=== PATIENT | male | born 1960 | race Caucasian/White ===

== ENCOUNTER 2017-10-25 02:55 | Observation (INO) | payer OTHER ==
[2017-10-25 03:09] VITALS: TEMP 98.4; BMI 25.0
--- NOTE | 2017-10-25 04:09 | PDOC ---
History of Present Illness - History of Present Illness Initial Comments: 10/25/17 05:40 Param 57 YOM with h/o alcohol dependence, depression presenting with abnormal EKG sent in from [facility] for detox. Patient reports that he is currently asymptomatic. Patient is bradycardic here in the ER and states he has never been told this before but has noticed for a couple months now that his heart rate is slower at times and has occasional pauses. Patient also endorses occasional shortness of breath but denies any syncopal episodes. Patient also have a positive family history for cardiac illnesses but cannot recall family members ages at the time of onset. Patient denies any recent illnesses. The patient denies chest pain, shortness of breath, headache, and dizziness. Denies fever, chills, nausea, vomit, diarrhea, and constipation. Denies dysuria, frequency, urgency, and hematuria. Allergies: NKA Past surgical history: None reported. Social history: Occasonal marijuana use. Current smoker. Alcohol use. <Melly Louis - Last Filed: 10/25/17 05:40> - General History Source: Patient Exam Limitations: No Limitations <Maribel Kelly - Last Filed: 10/25/17 06:13> - General Chief Complaint: Revisit, Lab Variance Stated Complaint: ABNORMAL EKG Time Seen by Provider: 10/25/17 03:26 Past History <Melly Louis - Last Filed: 10/25/17 05:40> - Past Medical History COPD: No Other medical history: Pt denies - Suicide/Smoking/Psychosocial Hx Smoking History: Current every day smoker Have you smoked in the past 12 months: Yes Number of Cigarettes Smoked Daily: 20 Information on smoking cessation initiated: No Hx Alcohol Use: Yes (Beer & liquor) Drug/Substance Use Hx: Yes (Marijuana) Substance Use Type: Alcohol, Marijuana <Maribel Kelly - Last Filed: 10/25/17 06:13> - Past Medical History Allergies/Adverse Reactions: Allergies Allergy/AdvReac Type Severity Reaction Status Date / Time No Known Allergies Allergy Verified 10/25/17 03:03 Review of Systems - Review of Systems Able to Perform ROS?: Yes Comments:: 10/25/17 05:40 ROS General Medical GENERAL/CONSTITUTIONAL: No fever or chills. No weakness. no sweats. HEAD, EYES, EARS, NOSE AND THROAT: No change in vision or hearing. No ear pain or discharge. No sore throat or mouth pain. No difficulty swallowing.. No congestion. CARDIOVASCULAR: No chest pain or palpitations, syncope or edema. RESPIRATORY: No SOB, cough, wheezing, or hemoptysis. GASTROINTESTINAL No nausea/vomiting. No diarrhea or constipation. No bloody stools. GENITOURINARY: No hematuria, dysuria, frequency, urgency or other changes. MUSCULOSKELETAL: No joint or muscle swelling or pain. No neck or back pain. SKIN: No rash or changes in skin color or lesions. NEUROLOGIC: No headache, vertigo, loss of consciousness, or change in strength/ sensation. No gait instability. HEMATOLOGIC/LYMPHATIC: No anemia, easy bruising/bleeding, or history of blood clots. ALLERGIC/IMMUNOLOGIC: No allergies All other systems reviewed and negative, or as documented in HPI. <Melly Louis - Last Filed: 10/25/17 05:40> *Physical Exam - Vital Signs Last Vital Signs Temp Pulse Resp BP Pulse Ox 98.4 F 49 L 18 130/73 96 10/25/17 03:06 10/25/17 03:06 10/25/17 03:06 10/25/17 03:06 10/25/17 03:06 - Physical Exam Comments: 10/25/17 05:40 Physical exam (general medical): for attending only patients. General: Well appearing, awake and alert, NAD. HEENT: NCAT, PERRL, EOMI, clear conjunctiva, anicteric, moist mucus membranes, clear oropharynx, no oral lesions.. Neck: neck supple, FROM Resp: CTAB, normal and even respirations, no respiratory distress CVS: RRR, no murmurs, 2+ peripheral pulses throughout, no peripheral edema Abdomen: soft, NTND, no peritoneal signs. Back: nontender, normal inspection and ROM MSK: no edema, CANCHOLA x4, ROM intact. No clubbing or cyanosis. normal bulk and tone. Neuro: alert, oriented appropriately; no focal neurologic deficits. Skin: warm and well perfused, cap refill <2 sec, normal color <Melly Louis - Last Filed: 10/25/17 05:40> - Vital Signs Last Vital Signs Temp Pulse Resp BP Pulse Ox 98.4 F 49 L 18 130/73 96 10/25/17 03:06 10/25/17 03:06 10/25/17 03:06 10/25/17 03:06 10/25/17 03:06 <Maribel Kelly - Last Filed: 10/25/17 06:13> Heart Score/ECG Review - ECG Impressions Comment:: 10/25/17 04:09 EKG with TWI in inferior and precordial leads, normal intervals no ST segment derangements, sinus bradycardia. <Maribel Kelly - Last Filed: 10/25/17 06:13> ED Treatment Course - LABORATORY CBC & Chemistry Diagram: 10/25/17 04:50 10/25/17 04:50 - ADDITIONAL ORDERS Additional order review: Laboratory Results 10/25/17 10/25/17 04:50 04:50 PT with INR 11.40 INR 1.01 Sodium 144 Potassium 3.8 Chloride 109 H Carbon Dioxide 29 Anion Gap 6 L BUN 12 Creatinine 0.9 Creat Clearance w eGFR > 60 Random Glucose 98 Calcium 8.7 Magnesium 1.9 Total Bilirubin 0.4 AST 22 ALT 29 Alkaline Phosphatase 73 Troponin I < 0.02 Total Protein 6.6 Albumin 3.6 10/25/17 04:50 RBC 4.42 MCV 94.6 MCHC 34.0 RDW 13.6 MPV 10.7 Neutrophils % 40.1 L Lymphocytes % 46.9 H Monocytes % 8.5 Eosinophils % 3.3 Basophils % 1.2 <Melly Louis - Last Filed: 10/25/17 05:40> - LABORATORY CBC & Chemistry Diagram: 10/25/17 04:50 10/25/17 04:50 - RADIOLOGY Radiology Studies Ordered: Category Date Time Status CHEST PA & LAT [RAD] Stat Radiology 10/25/17 03:26 Taken <Maribel Kelly - Last Filed: 10/25/17 06:13> Medical Decision Making - Medical Decision Making 10/25/17 04:08 A portion of this note was documented by scribe services under my direction. I have reviewed the details of the note, within reason, and agree with the documentation with the following case summary and management plan written by me. Shane Virgen 57 YOM with h/o alcohol dependence, depression presenting with abnormal EKG sent in from [facility] where he was initially getting eval for detox. Denies symptoms currently. However has episodes of left sided CP and sob occasionally, with other episodes of sinus pauses. no syncope. +fam history of CAD/unclear history and ages and specifics. Vital signs with sinus bradycardia. EKG with TWI in inferior and precordial leads, normal intervals no ST segment derangements, sinus bradycardia. no prior EKGs. basic labs and lytes wnl, coags normal, trop negative, reassuring. CXR clear, no effusion or mass or pulm edema. no tele events here, remains asymptomatic, but concerning prior history of cp/ sob and sinus pauses/symptomatic bradycardia cards cs, tele monitoring and admit for abnormal EKG and intermittent episodes of sinus pauses, bradycardia and CP/sob. admit for medical management, tele, lisa/abnormal EKG/ischemia workup, cards cs. consultation placed with relationship specialist doctor Dr. Stark 10/25/17 06:12 10/25/17 06:13 <Maribel Kelly - Last Filed: 10/25/17 06:13> *DC/Admit/Observation/Transfer - Attestations Scribe Attestion: 10/25/17 05:41 Documentation prepared by Melly Louis, acting as medical research scientist for Maribel Kelly MD. <Melly Louis - Last Filed: 10/25/17 05:40> - Discharge Dispostion Decision to Admit order: Yes <Maribel Kelly - Last Filed: 10/25/17 06:13> Diagnosis at time of Disposition: Abnormal EKG, Bradycardia - Discharge Dispostion Condition at time of disposition: Stable
[2017-10-25 05:06] LABS: BASO % 1.2 % (0-2.0); EOS % 3.3 % (0-4.5); HEMATOCRIT 41.9 % (35.4-49); HEMOGLOBIN 14.2 GM/dL (11.7-16.9); LYMPH % 46.9 % (8-40); MCH 32.2 pg (25.7-33.7); MEAN CELL VOLUME 94.6 fl (80-96); MEAN PLT VOLUME 10.7 fl (7.5-11.1); MONO % 8.5 % (3.8-10.2); NEUT % 40.1 % (42.8-82.8); PLATELET COUNT 168 K/MM3 (134-434); RBC 4.42 M/mm3 (4.00-5.60); RDW 13.6 % (11.9-15.9)
[2017-10-25 05:23] LABS: INR 1.01 (0.83-1.09); PROTHROMBIN TIME (PATIENT) 11.4 SEC (9.7-13.0)
[2017-10-25 05:34] LABS: ALBUMIN 3.6 g/dl (3.4-5.0); ANION GAP 6 MMOL/L (8-16); BILIRUBIN,TOTAL 0.4 mg/dL (0.2-1.0); BLOOD UREA NITROGEN 12 mg/dL (7-18); CALCIUM 8.7 mg/dL (8.5-10.1); CHLORIDE 109 mmol/L (98-107); CO2 29 mmol/L (21-32); CREATININE 0.9 mg/dL (0.7-1.3); GLUCOSE,RANDOM 98 mg/dL (74-106); MAGNESIUM 1.9 mg/dL (1.8-2.4); POTASSIUM 3.8 mmol/L (3.5-5.1); SGOT/AST 22 U/L (15-37); SGPT/ALT 29 U/L (12-78); SODIUM 144 mmol/L (136-145); TOT PROT 6.6 g/dl (6.4-8.2)
[2017-10-25 05:36] LABS: ALK PHOS 73 U/L (45-117)
--- NOTE | 2017-10-25 06:09 | PN ---
Teaching Attending Note Name of Resident: Demetra Yanez ATTENDING PHYSICIAN STATEMENT I saw and evaluated the patient. Chart, data, imaging reviewed. I reviewed the resident's note and discussed the case with the resident. I agree with the resident's findings and plan as documented. SUBJECTIVE: 57 YOM with h/o alcohol dependence, depression sent from [facility] for evaluation of abnormal EKG. EKG showed sinus bradycardia. Pt is asymptomatic. No chest pain or shortness of breath. His last drink of EtoH was monday. OBJECTIVE: Last Vital Signs Temp Pulse Resp BP Pulse Ox 98.4 F 52 L 18 132/75 96 10/25/17 03:30 10/25/17 03:30 10/25/17 03:30 10/25/17 03:30 10/25/17 03:30 general- nad cv - s1+s2 + bradycardia chest - clear abdomen - soft, nt ext- no pedal edema Abnormal Lab Results 10/25/17 10/25/17 04:50 04:50 Neutrophils % 40.1 L Lymphocytes % 46.9 H Chloride 109 H Anion Gap 6 L EKG showed sinus bradycardia ASSESSMENT AND PLAN: 57yo man with sinus bradycardia, otherwise asymptomatic -tele-observation -cardiac consult -tsh #ETOH abuse - no signs of withdrawal -thiamine, folate po -CIWA DVT ppx - heparin sc
[2017-10-25] MEDS ORDERED: FOLIC ACID 1 MG TABLET (FP) PO ONE (06:35)
--- NOTE | 2017-10-25 06:46 | HP ---
CHIEF COMPLAINT: abnormal EKG and bradycardia PCP: HISTORY OF PRESENT ILLNESS: 57 y/o male with no PMH presents to the ED from [facility] after found to have an abnormal EKG and asymptomatic bradycardia. Patient is not experiencing any CP/SOB, however he said that sometimes he does feel his heart goes a little slower but does not have symptoms. He was found on his EKG to have T wave inversions in the inferior and precordial leads, and his HR was 49. Patient is in deotx for alcohol use- states his last drink was monday and is not having any symptoms of withdrawal. ER course was notable for: (1)HR was 49; EKG showed T wave inversions in inferior and precordial leads. (2) (3) Recent Travel: none PAST MEDICAL HISTORY: none PAST SURGICAL HISTORY: ? hand surgery Social History: Smokinppd for past 20 years Alcohol: drinks beer and whiskey multiple times a week for the past 15 years Drugs: occasional marijuana use Family History: father has heart problems unknown what type Allergies No Known Allergies Allergy (Verified 10/25/17 03:03) HOME MEDICATIONS: REVIEW OF SYSTEMS CONSTITUTIONAL: Absent: fever, chills, diaphoresis, generalized weakness, malaise, loss of appetite, weight change HEENT: Absent: rhinorrhea, nasal congestion, throat pain, throat swelling, difficulty swallowing, mouth swelling, ear pain, eye pain, visual changes CARDIOVASCULAR: Absent: chest pain, syncope, palpitations, irregular heart rate, lightheadedness , peripheral edema RESPIRATORY: Absent: cough, shortness of breath, dyspnea with exertion, orthopnea, wheezing, stridor, hemoptysis GASTROINTESTINAL: Absent: abdominal pain, abdominal distension, nausea, vomiting, diarrhea, constipation, melena, hematochezia GENITOURINARY: Absent: dysuria, frequency, urgency, hesitancy, hematuria, flank pain, genital pain MUSCULOSKELETAL: Absent: myalgia, arthralgia, joint swelling, back pain, neck pain SKIN: Absent: rash, itching, pallor HEMATOLOGIC/IMMUNOLOGIC: Absent: easy bleeding, easy bruising, lymphadenopathy, frequent infections ENDOCRINE: Absent: unexplained weight gain, unexplained weight loss, heat intolerance, cold intolerance NEUROLOGIC: Absent: headache, focal weakness or paresthesias, dizziness, unsteady gait, seizure, mental status changes, bladder or bowel incontinence PSYCHIATRIC: Absent: anxiety, depression, suicidal or homicidal ideation, hallucinations. PHYSICAL EXAMINATION Vital Signs - 24 hr 10/25/17 10/25/17 03:06 03:30 Temperature 98.4 F 98.4 F Pulse Rate 49 L Pulse Rate [ 52 L Left Radial] Respiratory 18 18 Rate Blood Pressure 130/73 Blood Pressure 132/75 [Right Arm] O2 Sat by Pulse 96 96 Oximetry (%) GENERAL: Awake, alert, and fully oriented, in no acute distress. NECK: no JVD LUNGS: Breath sounds equal, clear to auscultation bilaterally. No wheezes, and no crackles. No accessory muscle use. HEART: bradycardia, normal S1 and S2 without murmur, rub or gallop. ABDOMEN: Soft, nontender, not distended, normoactive bowel sounds, no guarding, no rebound, no masses. No hepatomegaly or splenomegaly. MUSCULOSKELETAL: Normal range of motion at all joints. No bony deformities or tenderness. No CVA tenderness. EXTREMITIES: warm; well perfused; no clubbing/cyanosis/ edema NEUROLOGICAL: Cranial nerves II-XII intact. Normal speech. Normal gait. PSYCHIATRIC: Cooperative. Good eye contact. Appropriate mood and affect. SKIN: Warm, dry, normal turgor, no rashes or lesions noted, normal capillary refill. Laboratory Results - last 24 hr 10/25/17 10/25/17 10/25/17 04:50 04:50 04:50 WBC 9.0 RBC 4.42 Hgb 14.2 Hct 41.9 MCV 94.6 MCH 32.2 MCHC 34.0 RDW 13.6 Plt Count 168 MPV 10.7 Absolute Neuts (auto) 3.6 Neutrophils % 40.1 L Lymphocytes % 46.9 H Monocytes % 8.5 Eosinophils % 3.3 Basophils % 1.2 Nucleated RBC % 0 PT with INR 11.40 INR 1.01 Sodium 144 Potassium 3.8 Chloride 109 H Carbon Dioxide 29 Anion Gap 6 L BUN 12 Creatinine 0.9 Creat Clearance w eGFR > 60 Random Glucose 98 Calcium 8.7 Magnesium 1.9 Total Bilirubin 0.4 AST 22 ALT 29 Alkaline Phosphatase 73 Troponin I < 0.02 Total Protein 6.6 Albumin 3.6 ASSESSMENT/PLAN: 57 y.o male with no PMH history presents to the ED from [facility] after having found to have an abnormal EKG with T wave inversions in inferior and precordial leads and bradycardic. #1 Abnormal EKG - patient is asymptomatic however is bradycardic in the high 40's low 50's -cardiology consult ordered -TSH ordered -tele monitoring #2: Alcohol Dependence patient came from [facility] for alcohol use -last drink was last monday and patient is not withdrawing -folate and thiamine ordered -monitor for signs of withdrawl F/E/N: not on standing fluids replete electrolytes when necessary regular diet dispo: telemetry observation Problem List - Problem (1) Abnormal EKG Code(s): R94.31 - ABNORMAL ELECTROCARDIOGRAM [ECG] [EKG] (2) Bradycardia Code(s): R00.1 - BRADYCARDIA, UNSPECIFIED Visit type - Emergency Visit Emergency Visit: Yes Care time: The patient presented to the Emergency Department on the above date and was hospitalized for further evaluation of their emergent condition. - New Patient This patient is new to me today: Yes Date on this admission: 10/25/17 - Critical Care Critical Care patient: No Hospitalist Screening - Colonoscopy Questionnaire Colonoscopy Questionnaire: Colonoscopy Questionnaire - Patient: 50 - 75 years old and never had a screening colonoscopy: Unknown History of colon or rectal polyps, or CA: Unknown History of IBD, Crohn's disease or UC: Unknown History of abdominal radiation therapy as a child: Unknown - Relative: 1 with colon or rectal CA, or polyps at age 60 or younger: Unknown Colon or rectal CA diagnosed at age 45 or younger: Unknown Multiple relatives with colon or rectal CA: Unknown - Outcome: Screening Result: Negative Screen
[2017-10-25 08:11] LABS: PHOSPHOROUS 3.9 mg/dL (2.5-4.9)
[2017-10-25] MEDS ORDERED: FOLIC ACID 1 MG TABLET (FP) ONE (09:11)
[2017-10-25] MEDS ORDERED: THIAMINE HCL 100 MG TABLET (FP) PO SCH (10:00)
--- NOTE | 2017-10-25 11:49 | PN ---
Physical Exam: SUBJECTIVE: Patient seen and examined at bedside this morning. He denies any fevers, chills, dizziness, loss of consciousness, headache, changes in vision, chest pain, palpitations, abdominal pain, nausea, vomiting, diarrhea, constipation, dysuria, hematuria today. Admits his last drink was Monday where he had a six pack of beer and soto (does not recall amount). EK OBJECTIVE: Vital Signs Period Temp Pulse Resp BP Sys/Donnelly Pulse Ox Last 24 Hr 98.4 F-98.4 F 49-54 18-18 106-132/73-76 96-98 GENERAL: The patient is awake, alert, and fully oriented, in no acute distress. HEAD: Normal with no signs of trauma. EYES: PERRL, extraocular movements intact, sclera anicteric, conjunctiva clear. ENT: Oropharynx clear without exudates, moist mucous membranes. NECK: Trachea midline, full range of motion, supple without lymphadenopathy LUNGS: Breath sounds equal, clear to auscultation bilaterally. No wheezes, no crackles auscultated. Patient is not using accessory muscle for respiration. HEART: Regular rate and rhythm. +S1, S2 auscultated. No murmur, rub or gallop appreciated. ABDOMEN: Soft, nondistended, nontender to light or deep palpation. Normoactive bowel sounds auscultated X4 quadrants. No guarding, no rebound. EXTREMITIES: 2+ radial and DP pulses B/L. No edema of lower extremities B/L. NEUROLOGICAL: Cranial nerves II through XII grossly intact. Strength 5/5 B/L upper extremties flexion, extension, abduction. Strength 5/5 B/L lower extremity hip flexion, extension, knee flexion, extension, dorsiflexion, plantarflexion. No resting tremors. No intention tremors or tremors with movement. PSYCH: Appropriate mood and affect upon my exam. SKIN: Warm, dry. No rashes or lesions noted Laboratory Results - last 24 hr 10/25/17 10/25/17 10/25/17 04:50 04:50 04:50 WBC 9.0 RBC 4.42 Hgb 14.2 Hct 41.9 MCV 94.6 MCH 32.2 MCHC 34.0 RDW 13.6 Plt Count 168 MPV 10.7 Absolute Neuts (auto) 3.6 Neutrophils % 40.1 L Lymphocytes % 46.9 H Monocytes % 8.5 Eosinophils % 3.3 Basophils % 1.2 Nucleated RBC % 0 PT with INR 11.40 INR 1.01 Sodium 144 Potassium 3.8 Chloride 109 H Carbon Dioxide 29 Anion Gap 6 L BUN 12 Creatinine 0.9 Creat Clearance w eGFR > 60 Random Glucose 98 Calcium 8.7 Phosphorus 3.9 Magnesium 1.9 Total Bilirubin 0.4 AST 22 ALT 29 Alkaline Phosphatase 73 Troponin I < 0.02 Total Protein 6.6 Albumin 3.6 TSH 10/25/17 10/25/17 04:50 06:34 WBC RBC Hgb Hct MCV MCH MCHC RDW Plt Count MPV Absolute Neuts (auto) Neutrophils % Lymphocytes % Monocytes % Eosinophils % Basophils % Nucleated RBC % PT with INR INR Sodium Potassium Chloride Carbon Dioxide Anion Gap BUN Creatinine Creat Clearance w eGFR Random Glucose Calcium Phosphorus Cancelled Magnesium Total Bilirubin AST ALT Alkaline Phosphatase Troponin I Total Protein Albumin TSH 2.35 Active Medications Generic Name Dose Route Start Last Admin Trade Name Freq PRN Reason Stop Dose Admin Thiamine HCl 100 mg 10/25/17 10:00 10/25/17 10:35 Vitamin B1 - PO 100 mg DAILY ADAM Administration ASSESSMENT/PLAN: Patient is a 57 year old male from [facility] with history of alcohol dependence, and HLD presents with abnormal EKG of sinus bradycardia at 49BPM, asymptomatic. Sinus bradycardia -Asymptomatic upon presentation to ED, and upon exam today. -Denies prior history of bradycardia or prior cardiac workup. -EKG: -Troponins negative at 0.02 -TSH: Alcohol Dependence -Patient is from [facility] undergoing rehab. Last drink was Monday -Thiamine -Folae -Currently no signs of withdrawal. Will continue to monitor HLD -Patient admits diagnosis of hyperlipidemia on physical exam approx. 2 years ago , but has not taken any medications. FEN -No IV fluids ndicated at this time. Patient tolerates PO intake. -No electrolyte abnormalities. Will follow CMP -Regular diet. Prophylaxis - Disposition: -Observe heart rate and rhythm in Telemetry floor
--- NOTE | 2017-10-25 13:49 | PN ---
Teaching Attending Note Name of Resident: Lupe Fish ATTENDING PHYSICIAN STATEMENT I saw and evaluated the patient. I reviewed the resident's note and discussed the case with the resident. I agree with the resident's findings and plan as documented. SUBJECTIVE: Denies any CP, SOB , no fever or chills. has no palpitations . denies any cardiac history OBJECTIVE: NAd CV: RRR,no MRG. No JVD Lungs: CTAB Abd: soft,NT, Nd , NL BS Ext : no edema ASSESSMENT AND PLAN: 57 y/o man with h/o Alvohol abuse, and depression who presented to [facility] for detox and was sent here due to Abnormal EKG ( bradycardia) 1- Sinus bradycardia: EKG with sinus lisa, and TWI in lateral leads. No symptoms and hemodynamically stable - Monitor on tele - Not on any meds to induce bradycardia. - hernandez for TWI as out pt . might need stress test - Alcohol abstinence 2- Alcohol dependence : no signs of withdrawal . - return to [facility] , this afternoon . - will contact Dr. Kirk dispo : DC later today to [facility]
--- NOTE | 2017-10-25 15:14 | CON.CARD ---
Consult Consult Specialty:: Cardiology Referred by:: Hospitalist Reason for Consultation:: abnormal ekg - History of Present Illness Chief Complaint: sent from [facility] for abnormal ekg History of Present Illness: 57 year old man with pmh etoh abuse, depression, sent from detox for an abnormal ekg showing bradycardia and T wave inversions. Pt seen and examined in the er today in nad. pt denies any chest pain, sob, palpitations, lightheadedness, dizzinses, syncope, near syncope. states he had an exam with his PMD approx 1 year ago that was normal EKG and ECHO were obtained from PMD office by primary team showing similar EKG abnl with diffuse T wave inversions and Echo showing hyperdynamic LV systolic function with LVH. - History Source History Provided By: Patient, Medical Record Limitations to Obtaining History: Language Barrier - Alcohol/Substance Use Hx Alcohol Use: Yes (Beer & liquor) - Smoking History Smoking history: Current every day smoker Have you smoked in the past 12 months: Yes Aproximately how many cigarettes per day: 20 - Social History ADL: Independent History of Recent Travel: No Home Medications - Allergies Allergies/Adverse Reactions: Allergies Allergy/AdvReac Type Severity Reaction Status Date / Time No Known Allergies Allergy Verified 10/25/17 03:03 - Home Medications Home Medications: Ambulatory Orders Unobtainable 10/25/17 Family Disease History - Family Disease History Family History: Denies Review of Systems - Review of Systems Constitutional: denies: No Symptoms, Chills, Diaphoresis, Fever, Lethargy, Loss of Appetite, Malaise, Night Sweats, Unintentional Wgt. Loss, Weakness, Other Eyes: denies: No Symptoms, Blind Spots, Blurred Vision, Double Vision, Eye Pain , Floaters, Photophobia, Recent Change in Vision, Other HENT: denies: No Symptoms, Difficult Swallowing, Ear Discharge, Ear Pain, Epistaxis, Gingival Bleeding, Hearing Loss, Mouth Swelling, Nasal Congestion, Ocular Prosthesis, Throat Pain, Toothache, Ringing in Ears, Other Neck: denies: No Symptoms, Decreased ROM, Lumps, Pain on Movement, Stiffness, Swollen Glands, Tenderness, Other Cardiovascular: denies: No Symptoms, Chest Pain, Edema, Palpitations, Shortness of Breath, Other Respiratory: denies: No Symptoms, Cough, Exercise Intolerance, Hemoptysis, Orthopnea, PND, Snoring, SOB, SOB on Exertion, Wheezing, Other Gastrointestinal: denies: No Symptoms, Abdominal Pain, Bloating, Constipation, Diarrhea, Dysphagia, Indigestion, Melena, Nausea, Rectal Bleeding, Vomiting, Vomiting Blood, Other Genitourinary: denies: No Symptoms, Burning, Discharge, Dysuria, Flank Pain, Frequency, Hematuria, Incontinence, Lesions, Menses, Pain, Testicular Mass, Testicular Pain, Testicular Swelling, Urgency, Vaginal Bleeding, Other Breasts: denies: No Symptoms Reported, See HPI, Breast Implants, Discharge from Nipple, Lumps, Pain, Skin Changes, Other Musculoskeletal: denies: No Symptoms, Back Pain, Crepitus, Decreased ROM, Extremity Pain, Joint Pain, Joint Swelling, Muscle Pain, Muscle Cramps, Muscle Weakness, Other Integumentary: denies: No Symptoms, Blister, Bruising, Change in Color, Eczema, Erythema, Incision, Lesions, Lump, Pallor, Pruritis, Rash, Wound, Other Neurological: denies: No Symptoms, Change in LOC, Change in Speech, Confusion, Dizziness, Headache, Incoordination, Numbness, Parasthesia, Pre-Existing Deficit , Seizure, Syncope, Tremors, Unsteady Gait, Weakness, Other Endocrine: denies: No Symptoms, Excessive Sweating, Flushing, Increased Hunger, Increased Thirst, Intolerance to Cold, Intolerance to Heat, Unexplained Weight Gain, Unexplained Weight Loss, Other Hematology/Lymphatic: denies: No Symptoms, Easily Bruised, Excessive Bleeding, Swollen Glands, Other Psychiatric: denies: No Symptoms, Altered Sleep Pattern, Anxiety, Depression, Hallucinations, Panic, Paranoia, Suicidal, Other Vital Signs: Vital Signs Temperature 98.4 F 10/25/17 03:30 Pulse Rate 59 L 10/25/17 13:10 Respiratory Rate 18 10/25/17 03:30 Blood Pressure 140/77 10/25/17 13:10 O2 Sat by Pulse Oximetry (%) 98 10/25/17 13:10 Constitutional: Yes: No Distress, Calm Eyes: Yes: Conjunctiva Clear, EOM Intact, PERRL HENT: Yes: Atraumatic, Normocephalic Neck: Yes: Supple, Trachea Midline Respiratory: Yes: Regular, CTA Bilaterally. No: Rales, Rhonchi, SOB, Wheezes Gastrointestinal: Yes: Normal Bowel Sounds, Soft. No: Distention, Tenderness Cardiovascular: Yes: Regular Rate and Rhythm. No: Bradycardia, Tachycardia, Pulse Irregular, Gallop, Rub, Varicosities JVD: No Carotid Bruit: No PMI: Non-Displaced Heart Sounds: Yes: S1, S2. No: Split S2, S3, S4, Clicks, Gallop, Rub, Bruit Murmur: Yes: Systolic Murmur, Grade 2 Musculoskeletal: Yes: WNL Extremities: Yes: WNL Edema: No Peripheral Pulses WNL: Yes Peripheral Pulses: 2+ Left Doralis Pedis, 2+ Right Dorsalis Pedis Integumentary: Yes: WNL Neurological: Yes: Alert, Oriented, Cran Nerves II-XII Intact Psychiatric: Yes: Alert, Oriented - Other Data Labs, Other Data: CBC, BMP 10/25/17 04:50 10/25/17 04:50 INR, PTT INR 1.01 (0.83-1.09) 10/25/17 04:50 Troponin, BNP 10/25/17 04:50 Troponin I < 0.02 Troponin, BNP 10/25/17 04:50 Troponin I < 0.02 ekg-SB 49bpm, T inversions V3-V6, II, III, aVF Echo: Report Reviewed Imaging - Results Chest X-ray: Report Reviewed, Image Reviewed EKG: Report Reviewed, Image Reviewed Other: Report Reviewed, Image Reviewed Assessment/Plan 57 year old man with pmh etoh abuse, depression, sent from detox for an abnormal ekg showing bradycardia and T wave inversions. Pt seen and examined in the er today in nad. pt denies any chest pain, sob, palpitations, lightheadedness, dizzinses, syncope, near syncope. states he had an exam with his PMD approx 1 year ago that was normal EKG and ECHO were obtained from PMD office by primary team showing similar EKG abnl with diffuse T wave inversions and Echo showing hyperdynamic LV systolic function with LVH. Abnormal EKG-sinus bradycardia with T wave inversions -asymptomatic and similar to past EKG with PMD office -echo done in PMD office showed hyperdynamic LV systolic function and LVH with no sig valvular abnl -cardiac enzymes wnl -no further inpatient cardiac work up needed at this point -would recommend outpatient fup to consider stress testing to evaluate chronotropic competency -pt is acceptable for discharge back to et[facility] rehab from a cardiac standpoint.
[2017-10-25 17:02] VITALS: BP 135/82; PULSE 57
--- NOTE | 2017-10-26 13:42 | DS ---
Physical Exam: SUBJECTIVE: Patient seen and examined at bedside this morning. He denies any fevers, chills, dizziness, loss of consciousness, headache, changes in vision, chest pain, palpitations, abdominal pain, nausea, vomiting, diarrhea, constipation, dysuria, hematuria today. Admits his last drink was Monday where he had a six pack of beer and soto (does not recall amount). OBJECTIVE: Vital Signs Period Temp Pulse Resp BP Sys/Donnelly Pulse Ox Last 24 Hr 57 135/82 96 PHYSICAL EXAM GENERAL: The patient is awake, alert, and fully oriented, in no acute distress. HEAD: Normal with no signs of trauma. EYES: PERRL, extraocular movements intact, sclera anicteric, conjunctiva clear. ENT: Oropharynx clear without exudates, moist mucous membranes. NECK: Trachea midline, full range of motion, supple without lymphadenopathy LUNGS: Breath sounds equal, clear to auscultation bilaterally. No wheezes, no crackles auscultated. Patient is not using accessory muscle for respiration. HEART: Regular rate and rhythm. +S1, S2 auscultated. No murmur, rub or gallop appreciated. ABDOMEN: Soft, nondistended, nontender to light or deep palpation. Normoactive bowel sounds auscultated X4 quadrants. No guarding, no rebound. EXTREMITIES: 2+ radial and DP pulses B/L. No edema of lower extremities B/L. NEUROLOGICAL: Cranial nerves II through XII grossly intact. Strength 5/5 B/L upper extremities flexion, extension, abduction. Strength 5/5 B/L lower extremity hip flexion, extension, knee flexion, extension, dorsiflexion, plantarflexion. No resting tremors. No intention tremors or tremors with movement. PSYCH: Appropriate mood and affect upon my exam. SKIN: Warm, dry. No rashes or lesions noted LABS HOSPITAL COURSE: Date of Admission:10/25/17 Date of Discharge: 10/25/17 Patient is a 57 year old male from [facility] with history of alcohol dependence, and HLD presents with abnormal EKG of sinus bradycardia at 49BPM twave inversions II, III, AVF, V3-V6 , asymptomatic. He denied prior history of bradycardia or prior cardiac workup. Troponins were negative. Cardiology consultation discussed that prior EKG and ECHO obtained from patient's PCP were similar diffuse T wave inversions, and ECHO showing LVH without significant valvular abnormalities. No further inpatient cardiac workup advised. Patient was discharged back to [facility]. Advised to follow up with on car supervisor within one week for stress testing. Advised to follow up with PCP within one week after discharge. Minutes to complete discharge: 30 Discharge Summary Reason For Visit: ABNORMAL ELECTROCARDIOGRAPHY Condition: Improved - Instructions Diet, Activity, Other Instructions: You were admitted for an abnormal heart rate on your EKG. You were seen by the heart doctor (on car supervisor) and cleared for discharge back to the rehab at [facility]. It is important that you follow up with the heart doctor (Dr. Zamora) within one week of discharge. Please return to the emergency department if you are feeling headaches, dizziness, shortness of breath, chest pain, or chest palpitations at any time. Referrals: Jesica Cox [Other] - 1 Week Kaleb Zamora MD [Staff Physician] - 1 Week Disposition: I.P. ALCOHOL/SUBS ABUSE REHAB - Home Medications Comprehensive Discharge Medication List: Ambulatory Orders Donepezil HCl 10 mg PO HS 10/24/17 Mirtazapine 45 mg PO HS 10/24/17 Sertraline HCl [Zoloft] 100 mg PO DAILY 10/24/17 Problem List - Problems (1) Abnormal EKG Code(s): R94.31 - ABNORMAL ELECTROCARDIOGRAM [ECG] [EKG] (2) Bradycardia Code(s): R00.1 - BRADYCARDIA, UNSPECIFIED This patient is new to me today: Yes Date on this admission: 10/25/17 Emergency Visit: Yes ED Registration Date: 10/25/17 Care time: The patient presented to the Emergency Department on the above date and was hospitalized for further evaluation of their emergent condition. Critical Care patient: No - Discharge Referral Referred to [facility] Med [facility] No
--- NOTE | 2017-11-15 10:44 | EKG ---
Test Reason : Blood Pressure : / mmHG Vent. Rate : 045 BPM Atrial Rate : 045 BPM P-R Int : 166 ms QRS Dur : 116 ms QT Int : 502 ms P-R-T Axes : 078 076 035 degrees QTc Int : 434 ms SINUS BRADYCARDIA LEFT VENTRICULAR HYPERTROPHY WITH QRS WIDENING CANNOT RULE OUT SEPTAL INFARCT , AGE UNDETERMINED T WAVE ABNORMALITY, CONSIDER ANTEROLATERAL ISCHEMIA ABNORMAL ECG WHEN COMPARED WITH ECG OF 25-OCT-2017 01:40, INCOMPLETE LEFT BUNDLE BRANCH BLOCK IS NO LONGER PRESENT Confirmed by ZABRINA MCCLAIN, GRACIELA ([id number]) on 11/15/2017 10:44:34 AM Referred By: Confirmed By:GRACIELA GERBER MD
== END 2017-10-25 17:20 | disposition other institution (70) ==
LOC: JER 02:55 → MERGE 05:38 → JERBED 05:38
PROVIDERS: ADMIT Internal Medicine; ATTEND Internal Medicine
DX: R94.31 Abnormal electrocardiogram [ECG] [EKG] (principal); F10.20 Alcohol dependence, uncomplicated; R00.1 Bradycardia, unspecified; F17.210 Nicotine dependence, cigarettes, uncomplicated; F32.9 Major depressive disorder, single episode, unspecified; E78.5 Hyperlipidemia, unspecified
CPT/HCPCS: 36415; 71046-TC-FY; 80053; 83735; 84100; 84443; 84484; 85025; 85610; 93005; 93010; 99283-25; G0378